=== PATIENT | female | born 1990 | race Caucasian/White ===

== ENCOUNTER 2022-03-25 17:14 | Day surgery (SDC) | payer BC ==
[2022-03-25] MEDS ORDERED: hydrALAZINE 20 MG/ML VIAL SLOW IVP PRN (18:41)
== END 2022-03-25 21:10 | disposition home or self-care (01) ==
LOC: CSHLD/OP 17:14
PROVIDERS: ATTEND Obstetrics & Gynecology
DX: O47.1 False labor at or after 37 completed weeks of gestation (principal); Z86.16 Personal history of COVID-19; Z79.82 Long term (current) use of aspirin; Z79.899 Other long term (current) drug therapy; Z3A.37 37 weeks gestation of pregnancy
CPT/HCPCS: 99282

== ENCOUNTER 2022-04-01 08:25 | Inpatient (IN) | payer BC ==
[~2022-04-01 08:25] MED LIST: Bupivacaine 0.25% HCL 30 ML VIAL ONE; ePHEDrine Sulfate 50 MG/10 ML VIAL ONE
[2022-04-01] MEDS ORDERED: Promethazine HCl 25 MG/ML VIAL IM PRN ×2 (09:21→11:28)
[2022-04-01] MEDS ORDERED: Docusate 100 MG CAP PO PRN (09:21)
[2022-04-01] MEDS ORDERED: hydrALAZINE 20 MG/ML VIAL SLOW IVP PRN ×2 (09:21→19:24)
[2022-04-01] MEDS ORDERED: Butorphanol Tartrate 1 MG/ML VIAL SLOW IVP PRN (09:21)
[2022-04-01] MEDS ORDERED: HYDROcodone/Acetaminophen 5/325 mg Tablet PO PRN ×3 (09:21→19:24)
[2022-04-01] MEDS ORDERED: Ondansetron PF 4 MG/2 ML Vial IVP PRN ×3 (09:21→19:24)
[2022-04-01] MEDS ORDERED: Lidocaine 1% (PF) 30 ML VIAL SC PRN (09:21)
[2022-04-01] MEDS ORDERED: Zolpidem Tartrate 5 MG TAB PO PRN (09:21)
[2022-04-01] MEDS ORDERED: Ibuprofen 800 MG TAB PO PRN (09:21)
[2022-04-01] MEDS ORDERED: NS w/ Oxytocin 30 units 500 ML IV SCH ×3 (09:30→19:24)
[2022-04-01] MEDS ORDERED: Lactated Ringer's 1,000 ML IV SCH ×2 (09:30)
[2022-04-01 10:25] LABS: Hemoglobin 11.7 g/dL (12.0-15.5); Mean Corpuscular HGB CONC 33.3 g/dL (32.0-36.0); Mean Corpuscular Hemoglobin 29.5 pg (27.0-33.0); Mean Corpuscular Volume 88.4 fl (81.6-98.3); Mean Platelet Volume 10.5 fl (7.4-10.4); Platelet Count 157 10x3/uL (150-450); Red Blood Cell (RBC) Count 3.97 10x6/uL (3.90-5.03); White Blood Cell (WBC) Count 8.1 10x3/uL (3.5-10.5)
[2022-04-01] MEDS ORDERED: Fentanyl 2 mcg/Bup 0.1% Cadd 100 ML ONE (10:44)
[2022-04-01 10:58] LABS: HBSAg Index 0.24 S/CO (0-0.99); Hep B Surf Ag Non-Reactive S/CO (NonReactive); Syphilis Antibody Nonreactive (Nonreactive); Syphilis Antibody Index 0.05 S/CO (<1.00 Non-Reactive)
[2022-04-01] MEDS ORDERED: Lactated Ringer's 500 ML IV PRN (11:28)
[2022-04-01] MEDS ORDERED: Moisturizing Cream (Eucerin) 113 GM JAR TOP PRN (11:28)
[2022-04-01] MEDS ORDERED: ePHEDrine Sulfate 50 MG/10 ML VIAL SLOW IVP PRN (11:28)
[2022-04-01] MEDS ORDERED: Acetaminophen 325 MG TAB PO PRN (11:28)
[2022-04-01] MEDS ORDERED: diphenhydrAMINE 50 MG/ML VIAL IVP PRN (11:28)
[2022-04-01] MEDS ORDERED: Naloxone HCl 0.4 mg/ml Vial IVP PRN ×2 (11:28)
[2022-04-01] MEDS ORDERED: Communication Order-Pharmacy FS SCH (11:30)
[2022-04-01] MEDS ORDERED: Fentanyl 2 mcg/Bupivacaine 0.1% Cassette 100 ML EPIDURAL SCH (11:30)
[2022-04-01] MEDS ORDERED: Benzocaine-Menthol 82.5 ML CAN TOP PRN (19:24)
[2022-04-01] MEDS ORDERED: Milk Of Magnesia 30 ML UDCUP PO PRN (19:24)
[2022-04-01] MEDS ORDERED: Boostrix 0.5 ML (Tdap) VIAL (>/=7 yrs of age) IM ONE (19:24)
[2022-04-01] MEDS ORDERED: diphenhydrAMINE 25 MG CAP PO PRN (19:24)
[2022-04-01] MEDS ORDERED: Preparation H Ointment 28 GM TUBE PR PRN (19:24)
[2022-04-01] MEDS ORDERED: Lanolin Ointment 7 GM TUBE TOP PRN (19:24)
[2022-04-01] MEDS ORDERED: Bisacodyl 10 MG SUPP PR PRN (19:24)
[2022-04-01] MEDS ORDERED: Ferrous Sulfate 325 MG TAB PO SCH (20:00)
[2022-04-01] MEDS: Docusate 100 MG CAP PO SCH (21:20)
[2022-04-01] MEDS: Ibuprofen 800 MG TAB PO SCH (21:20)
[2022-04-02] MEDS: HYDROcodone/Acetaminophen 5/325 mg Tablet PO PRN ×2 (03:53→12:15)
[2022-04-02] MEDS: Ibuprofen 800 MG TAB PO SCH ×2 (06:25→13:48)
[2022-04-02] MEDS: Ferrous Sulfate 325 MG TAB PO SCH (07:03)
[2022-04-02] MEDS ORDERED: Prenatal Vitamin 1 TAB PO SCH (09:00)
[2022-04-02] MEDS: Docusate 100 MG CAP PO SCH (09:09)
[2022-04-02 15:39] VITALS: BP 120/82; TEMP 98.1
== END 2022-04-02 19:05 | disposition home or self-care (01) | DRG 807 ==
LOC: CSHLD/OP 08:25 → CSHLD 10:42 → CSHPP 19:15
PROVIDERS: ADMIT Obstetrics & Gynecology; ATTEND Obstetrics & Gynecology
PROC: 10E0XZZ Delivery of Products of Conception, External Approach (ICD-10-PCS; principal; 2022-04-01)
PROC: 0HQ9XZZ Repair Perineum Skin, External Approach (ICD-10-PCS; 2022-04-01)
DX: O70.0 First degree perineal laceration during delivery (principal); Z37.0 Single live birth; Z3A.38 38 weeks gestation of pregnancy
CPT/HCPCS: 36415; 51702; 85027; 86780; 86850; 86900; 86901; 87340; 99285; S0020